=== PATIENT | female | born 1950 | race Two or more races ===

== ENCOUNTER 2023-04-26 14:35 | Inpatient (IN) | payer OTHER ==
[~2023-04-26] VITALS: Ht 154.9 cm; Wt 103.5 kg
[2023-04-26 15:39] LABS: Basophils # (auto) 0 10 ^3/uL (0-0.2); Basophils % (auto) 0.6 % (0.0-2.0); Eosinophils # (auto) 0.3 10 ^3/uL (0-0.8); Eosinophils % (auto) 3.6 % (0.0-7.0); Hematocrit 40.7 % (36.0-46.0); Hemoglobin 13.7 g/dL (12.2-16.2); Lymphocytes # (auto) 2.1 10 ^3/uL (0.4-5.4); Lymphocytes % (auto) 25.8 % (10.0-50.0); Mean Corpuscular Hemoglobin 30.4 pg (28.0-32.0); Mean Corpuscular Hgb Conc. 33.7 g/dL (32.0-36.0); Monocytes # (auto) 0.4 10 ^3/uL (0-1.3); Monocytes % (auto) 5.4 % (0.0-12.0); Neutrophils # (auto) 5.3 10 ^3/uL (1.6-8.6); Neutrophils % (auto) 64.6 % (37.0-80.0); Nucleated Red Blood Cells % 0.2 %; Red Blood Cells 4.52 10^6/uL (4.0-5.20); Red Cell Distribution Width 14.7 % (11.8-14.3); White Blood Cell 8.2 10^3/uL (4.4-10.8)
[2023-04-26 16:02] LABS: Albumin 3.5 g/dL (3.4-5.0); BUN/Creatinine Ratio 24.6 (10.0-20.0); Bilirubin, Total 0.6 mg/dL (0.2-1.0); Calcium 8.7 mg/dL (8.5-10.1); Total Protein 7.2 g/dL (6.4-8.2)
[2023-04-26 16:37] VITALS: PULSE 65; RESP 20; O2SAT 99
[2023-04-26] MEDS ORDERED: ASPirin 325 MG TAB PO ONE (16:45)
[2023-04-26 16:56] LABS: INR 1.04 (0.9-1.15); Partial Thromboplastin Time 26.7 SEC (24.5-34.5)
[2023-04-26 17:02] LABS: Urine Bacteria FEW /hpf (None Seen); Urine Blood Negative /uL (Negative); Urine Specific Gravity 1.019 (1.001-1.035); Urine WBC 1 /hpf (0 - 5)
[2023-04-26] MEDS ORDERED: HEPARIN SODIUM (PORCINE) 5000 UNITS/ML 1ML VIAL IV ONE (17:45)
[2023-04-26] MEDS ORDERED: AMLO1TAB21 PO (18:45)
[2023-04-26] MEDS ORDERED: NITROGLYCERIN 0.4 MG SL TAB SL PRN (18:45)
[2023-04-26] MEDS ORDERED: INSUINJ37 SC (18:45)
[2023-04-26] MEDS ORDERED: METH4PAK3 PO (18:45)
[2023-04-26] MEDS ORDERED: LIRA18IN2 SC (18:45)
[2023-04-26] MEDS ORDERED: EMPA1TAB3 PO (18:45)
[2023-04-26] MEDS ORDERED: BACL10TA PO (18:45)
[2023-04-26] MEDS ORDERED: MORPHINE SULFATE INJ 2 MG/ml SYRG IV PRN (18:45)
[2023-04-26] MEDS ORDERED: GLUC1TES36 (18:45)
[2023-04-26] MEDS ORDERED: ALBUTEROL SULF 2.5 MG/0.5ML(0.5%) NEB SOLN NEB PRN (18:45)
[2023-04-26] MEDS: HEPARIN DRIP/D5W 100UNITS/ML 250 ML IV SCH (18:47)
[2023-04-26] MEDS: SODIUM CHLORIDE 0.9% 1,000 ML IV SCH (18:53)
[2023-04-26] MEDS ORDERED: DEXTROSE (50%) 50ML SYRG IV PRN (19:00)
[2023-04-26 19:18] LABS: Cholesterol 158 mg/dL (< 200)
[2023-04-26 19:20] LABS: HDL Cholesterol 65 mg/dL (40-59); LDL Cholesterol 71 mg/dL (< 100); Triglycerides 316 mg/dL (< 150)
[2023-04-26 19:30] VITALS: PULSE 18; RESP 20; O2SAT 96
[2023-04-26 20:15] VITALS: BP 132/80; PULSE 65; RESP 16; TEMP 98.3; O2SAT 98
[2023-04-26] MEDS: ACCU-CHEK COMFORT CURVE STRIP VI SCH (21:55)
[2023-04-26] MEDS: InsuLIN REG 1unit/0.01ml Soln (100units/ml) SC SCH (21:56)
[2023-04-27] VITALS (7 sets, daily range): BP systolic 126–149; BP diastolic 61–81; PULSE 52–81; RESP 16–21; TEMP 97.6–98.1; O2SAT 95–99
[2023-04-27 01:44] LABS: Partial Thromboplastin Time > 139.0 SEC (24.5-34.5)
[2023-04-27 06:27] LABS: Basophils # (auto) 0 10 ^3/uL (0-0.2); Basophils % (auto) 0.5 % (0.0-2.0); Eosinophils # (auto) 0.4 10 ^3/uL (0-0.8); Eosinophils % (auto) 4.9 % (0.0-7.0); Hematocrit 38.1 % (36.0-46.0); Hemoglobin 12.5 g/dL (12.2-16.2); Lymphocytes # (auto) 2.1 10 ^3/uL (0.4-5.4); Lymphocytes % (auto) 28.3 % (10.0-50.0); Mean Corpuscular Hemoglobin 30.2 pg (28.0-32.0); Mean Corpuscular Hgb Conc. 32.9 g/dL (32.0-36.0); Mean Corpuscular Volume 91.8 fL (80.0-100.0); Monocytes # (auto) 0.5 10 ^3/uL (0-1.3); Neutrophils # (auto) 4.3 10 ^3/uL (1.6-8.6); Neutrophils % (auto) 59.3 % (37.0-80.0); Nucleated Red Blood Cells % 0.2 %; Red Blood Cells 4.15 10^6/uL (4.0-5.20); Red Cell Distribution Width 14.4 % (11.8-14.3); White Blood Cell 7.3 10^3/uL (4.4-10.8)
[2023-04-27] MEDS: InsuLIN REG 1unit/0.01ml Soln (100units/ml) SC SCH ×4 (06:29→21:27)
[2023-04-27] MEDS: ACCU-CHEK COMFORT CURVE STRIP VI SCH ×4 (06:29→21:27)
[2023-04-27 06:46] LABS: Albumin 2.9 g/dL (3.4-5.0); Calcium 8.3 mg/dL (8.5-10.1); Potassium 4.1 mmol/L (3.5-5.1)
[2023-04-27 06:51] LABS: BUN/Creatinine Ratio 24.8 (10.0-20.0); Bilirubin, Total 0.5 mg/dL (0.2-1.0); Total Protein 6.7 g/dL (6.4-8.2)
[2023-04-27 09:51] LABS: INR 1.08 (0.9-1.15); Partial Thromboplastin Time 53.2 SEC (24.5-34.5)
[2023-04-27] MEDS: amLODIPine BESYLATE 5 MG TAB PO SCH (11:22)
[2023-04-27] MEDS: HEPARIN DRIP/D5W 100UNITS/ML 250 ML IV SCH ×3 (11:27→23:19)
[2023-04-27] MEDS: SODIUM CHLORIDE 0.9% 1,000 ML IV SCH ×2 (11:28→21:28)
[2023-04-27 15:48] LABS: INR 1.07 (0.9-1.15)
[2023-04-27] MEDS: ATORVASTATIN 20 MG TAB PO SCH (21:27)
[2023-04-27] MEDS: PANTOPRAZOLE 40 MG/10 ML VIAL INJ IV SCH (21:28)
[2023-04-27 23:07] LABS: INR 1.08 (0.9-1.15)
[2023-04-27 23:11] LABS: Partial Thromboplastin Time 79.1 SEC (24.5-34.5)
[2023-04-28] VITALS (8 sets, daily range): BP systolic 115–150; BP diastolic 47–85; PULSE 55–74; RESP 16–20; TEMP 97.3–98.1; O2SAT 97–100
[2023-04-28] MEDS: ACETAMINOPHEN 325 MG TAB PO PRN ×2 (06:24→23:44)
[2023-04-28] MEDS: InsuLIN REG 1unit/0.01ml Soln (100units/ml) SC SCH ×4 (06:24→21:36)
[2023-04-28] MEDS: ACCU-CHEK COMFORT CURVE STRIP VI SCH ×4 (06:24→21:32)
[2023-04-28 06:46] LABS: INR 1.08 (0.9-1.15); Partial Thromboplastin Time 65.2 SEC (24.5-34.5)
[2023-04-28] MEDS: HEPARIN DRIP/D5W 100UNITS/ML 250 ML IV SCH ×2 (06:59→19:56)
[2023-04-28] MEDS: PANTOPRAZOLE 40 MG/10 ML VIAL INJ IV SCH ×2 (11:13→21:32)
[2023-04-28] MEDS: amLODIPine BESYLATE 5 MG TAB PO SCH (11:16)
[2023-04-28 12:48] LABS: INR 1.09 (0.9-1.15); Partial Thromboplastin Time 61.6 SEC (24.5-34.5)
[2023-04-28 19:32] LABS: INR 1.06 (0.9-1.15)
[2023-04-28] MEDS: ATORVASTATIN 20 MG TAB PO SCH (21:31)
[2023-04-28] MEDS: HYDROcodone-ACET 5/325MG TAB PO PRN (21:31)
[2023-04-28] MEDS: SODIUM CHLORIDE 0.9% 1,000 ML IV SCH (21:32)
[2023-04-29] VITALS (12 sets, daily range): BP systolic 110–145; BP diastolic 54–80; PULSE 50–63; RESP 13–18; TEMP 97.5–98.7; O2SAT 94–100
[2023-04-29] MEDS: InsuLIN REG 1unit/0.01ml Soln (100units/ml) SC SCH ×4 (06:46→21:37)
[2023-04-29] MEDS: ACCU-CHEK COMFORT CURVE STRIP VI SCH ×4 (06:47→21:37)
[2023-04-29 07:18] LABS: INR 1.09 (0.9-1.15)
[2023-04-29 07:50] LABS: Partial Thromboplastin Time > 139.0 SEC (24.5-34.5)
[2023-04-29] MEDS ORDERED: HEPARIN DRIP/D5W 100UNITS/ML 250 ML IV SCH ×2 (09:00→17:55)
[2023-04-29] MEDS: PANTOPRAZOLE 40 MG/10 ML VIAL INJ IV SCH ×2 (09:08→21:27)
[2023-04-29] MEDS: amLODIPine BESYLATE 5 MG TAB PO SCH (09:09)
[2023-04-29] MEDS ORDERED: MIDAZOLAM HCL 2MG/2ML 2ml VIAL (1mg/ml) ONE (12:54)
[2023-04-29] MEDS ORDERED: fentaNYL CITRATE 100 MCG/2 ML VL ONE (12:54)
[2023-04-29] MEDS ORDERED: VERAPAMIL 2.5MG/ML INJ 2ML VIAL IV ONE (12:54)
[2023-04-29] MEDS ORDERED: ANGIOMAX 250 MG VIAL IV ONE (12:54)
[2023-04-29] MEDS ORDERED: LIDOCAINE 2%HCL (LOCAL ANESTH.) INJ 20ML MDV ONE (12:55)
[2023-04-29] MEDS ORDERED: SODIUM CHL 0.9% 0 ML ONE (12:55)
[2023-04-29] MEDS: SODIUM CHLORIDE 0.9% 1,000 ML IV SCH (13:25)
[2023-04-29] MEDS ORDERED: HEPARIN SODIUM (PORCINE) 5000 UNITS/ML 1ML VIAL ONE (13:48)
[2023-04-29 16:50] LABS: INR 1.07 (0.9-1.15)
[2023-04-29 16:54] LABS: Partial Thromboplastin Time 102.2 SEC (24.5-34.5)
[2023-04-29] MEDS: ATORVASTATIN 20 MG TAB PO SCH (21:27)
[2023-04-30] VITALS (9 sets, daily range): BP systolic 120–139; BP diastolic 62–98; PULSE 53–80; RESP 16–18; TEMP 97.4–98.9; O2SAT 95–98
[2023-04-30 01:40] LABS: INR 1.06 (0.9-1.15); Partial Thromboplastin Time 49.2 SEC (24.5-34.5)
[2023-04-30] MEDS: SODIUM CHLORIDE 0.9% 1,000 ML IV SCH ×2 (06:05→22:45)
[2023-04-30] MEDS: InsuLIN REG 1unit/0.01ml Soln (100units/ml) SC SCH ×4 (06:35→23:09)
[2023-04-30] MEDS: ACCU-CHEK COMFORT CURVE STRIP VI SCH ×4 (06:38→22:00)
[2023-04-30 07:17] LABS: INR 1.06 (0.9-1.15); Partial Thromboplastin Time 59.8 SEC (24.5-34.5)
[2023-04-30] MEDS ORDERED: HEPARIN DRIP/D5W 100UNITS/ML 250 ML IV SCH ×2 (08:30→14:45)
[2023-04-30] MEDS: PANTOPRAZOLE 40 MG/10 ML VIAL INJ IV SCH ×2 (09:42→21:23)
[2023-04-30] MEDS: amLODIPine BESYLATE 5 MG TAB PO SCH (09:43)
[2023-04-30 13:42] LABS: INR 1.08 (0.9-1.15); Partial Thromboplastin Time 36.1 SEC (24.5-34.5)
[2023-04-30] MEDS: HYDROcodone-ACET 5/325MG TAB PO PRN ×2 (17:50→23:10)
[2023-04-30] MEDS: ATORVASTATIN 20 MG TAB PO SCH (21:23)
[2023-04-30 21:28] LABS: INR 1.04 (0.9-1.15); Partial Thromboplastin Time 51.2 SEC (24.5-34.5)
[2023-05-01] VITALS (7 sets, daily range): BP systolic 107–137; BP diastolic 58–76; PULSE 53–87; RESP 15–20; TEMP 97.7–98.2; O2SAT 90–98
[2023-05-01 03:30] LABS: INR 1.04 (0.9-1.15)
[2023-05-01 03:32] LABS: Partial Thromboplastin Time 82.6 SEC (24.5-34.5)
[2023-05-01] MEDS: InsuLIN REG 1unit/0.01ml Soln (100units/ml) SC SCH ×4 (05:53→21:32)
[2023-05-01] MEDS: ACCU-CHEK COMFORT CURVE STRIP VI SCH ×4 (05:54→22:28)
[2023-05-01] MEDS: PANTOPRAZOLE 40 MG/10 ML VIAL INJ IV SCH ×2 (09:23→21:30)
[2023-05-01] MEDS: amLODIPine BESYLATE 5 MG TAB PO SCH (09:26)
[2023-05-01] MEDS: HYDROcodone-ACET 5/325MG TAB PO PRN ×2 (09:50→21:30)
[2023-05-01] MEDS: APIXABAN 5 MG TAB PO SCH ×2 (10:30→21:30)
[2023-05-01 11:07] LABS: INR 1.06 (0.9-1.15); Partial Thromboplastin Time 53.3 SEC (24.5-34.5)
[2023-05-01] MEDS: SODIUM CHLORIDE 0.9% 1,000 ML IV SCH (15:25)
[2023-05-01] MEDS: ATORVASTATIN 20 MG TAB PO SCH (21:30)
[2023-05-02 05:00] VITALS: BP 123/76; PULSE 66; RESP 18; TEMP 98; O2SAT 96
[2023-05-02] MEDS: SODIUM CHLORIDE 0.9% 1,000 ML IV SCH (05:53)
[2023-05-02] MEDS: InsuLIN REG 1unit/0.01ml Soln (100units/ml) SC SCH ×4 (06:04→21:16)
[2023-05-02] MEDS: ACCU-CHEK COMFORT CURVE STRIP VI SCH ×4 (07:01→21:21)
[2023-05-02 08:00] VITALS: PULSE 58
[2023-05-02 09:00] VITALS: BP 138/65; PULSE 71; RESP 16; TEMP 97.3; O2SAT 97
[2023-05-02] MEDS: PANTOPRAZOLE 40 MG/10 ML VIAL INJ IV SCH ×2 (09:36→21:17)
[2023-05-02] MEDS: APIXABAN 5 MG TAB PO SCH ×2 (09:37→21:17)
[2023-05-02] MEDS: amLODIPine BESYLATE 5 MG TAB PO SCH (09:37)
[2023-05-02] MEDS: HYDROcodone-ACET 5/325MG TAB PO PRN ×2 (11:31→19:38)
[2023-05-02 12:53] VITALS: BP 131/57; PULSE 70; RESP 16; TEMP 96.9; O2SAT 98
[2023-05-02 17:00] VITALS: BP 122/57; PULSE 65; RESP 16; TEMP 97.7; O2SAT 97
[2023-05-02 20:00] VITALS: PULSE 69
[2023-05-02] MEDS: ATORVASTATIN 20 MG TAB PO SCH (21:17)
[2023-05-03] MEDS: SODIUM CHLORIDE 0.9% 1,000 ML IV SCH (01:04)
[2023-05-03 05:16] VITALS: BP 139/66; PULSE 65; RESP 20; TEMP 98.5; O2SAT 97
[2023-05-03] MEDS: InsuLIN REG 1unit/0.01ml Soln (100units/ml) SC SCH ×2 (06:28→11:30)
[2023-05-03] MEDS: ACCU-CHEK COMFORT CURVE STRIP VI SCH ×2 (06:29→11:30)
[2023-05-03 08:00] VITALS: PULSE 55
[2023-05-03 09:00] VITALS: BP 124/57; PULSE 68; RESP 15; TEMP 98.5; O2SAT 97
[2023-05-03] MEDS: PANTOPRAZOLE 40 MG/10 ML VIAL INJ IV SCH (09:24)
[2023-05-03] MEDS: APIXABAN 5 MG TAB PO SCH (09:24)
[2023-05-03] MEDS: amLODIPine BESYLATE 5 MG TAB PO SCH (09:29)
[2023-05-03] MEDS ORDERED: APIX5TAB PO (09:57)
[2023-05-03] MEDS ORDERED: PANT40T PO (09:57)
[2023-05-03 10:25] VITALS: BP 124/57
== END 2023-05-03 12:47 | disposition home or self-care (01) | DRG 280 ==
LOC: ER 14:35 → TELE 18:43 → TELE-CENTR 04-27 08:17
PROVIDERS: ADMIT Family Medicine; ATTEND Family Medicine
PROC: 4A023N7 Measurement of Cardiac Sampling and Pressure, Left Heart, Percutaneous Approach (ICD-10-PCS; principal; 2023-04-29)
PROC: B211YZZ Fluoroscopy of Multiple Coronary Arteries using Other Contrast (ICD-10-PCS; 2023-04-29)
DX: I21.4 Non-ST elevation (NSTEMI) myocardial infarction (principal); J96.01 Acute respiratory failure with hypoxia; I82.4Z2 Acute embolism and thrombosis of unspecified deep veins of left distal lower extremity; Z68.41 Body mass index [BMI] 40.0-44.9, adult; Z20.822 Contact with and (suspected) exposure to COVID-19; E66.9 Obesity, unspecified; I10 Essential (primary) hypertension; E11.9 Type 2 diabetes mellitus without complications; J45.909 Unspecified asthma, uncomplicated; E78.5 Hyperlipidemia, unspecified; E78.00 Pure hypercholesterolemia, unspecified; I25.10 Atherosclerotic heart disease of native coronary artery without angina pectoris; S70.12XA Contusion of left thigh, initial encounter; K29.70 Gastritis, unspecified, without bleeding; Z93.3 Colostomy status; Z79.01 Long term (current) use of anticoagulants; Z82.0 Family history of epilepsy and other diseases of the nervous system; X58.XXXA Exposure to other specified factors, initial encounter; Y93.89 Activity, other specified; Y92.238 Other place in hospital as the place of occurrence of the external cause; Y99.8 Other external cause status
CPT/HCPCS: 36415; 71045; 78582; 80053; 80061; 81001; 82270; 82962; 83036; 83735; 83880; 84443; 84484; 85025; 85379; 85610; 85730; 86850; 86900; 86901; 87426; 87804; 93005; 93306; 93458; 93926; 93970; 96374; 96375; 99152; C9113; G0378; J1815; J2250

== ENCOUNTER → 2023-09-14 | Outpatient (CLI) | payer OTHER ==
[~2023-09-14] MED LIST: AMLO1TAB21 PO; APIX5TAB PO; BACL10TA PO; EMPA1TAB3 PO; GLUC1TES36; INSUINJ37 SC; LIRA18IN2 SC; METH4PAK3 PO; PANT40T PO
[2023-09-14 13:57] LABS: Basophils # (auto) 0 10 ^3/uL (0-0.2); Basophils % (auto) 0.4 % (0.0-2.0); Eosinophils # (auto) 0.2 10 ^3/uL (0-0.8); Eosinophils % (auto) 2.1 % (0.0-7.0); Hematocrit 42.8 % (36.0-46.0); Hemoglobin 14.2 g/dL (12.2-16.2); Lymphocytes # (auto) 2.3 10 ^3/uL (0.4-5.4); Lymphocytes % (auto) 26.7 % (10.0-50.0); Mean Corpuscular Hemoglobin 30.1 pg (28.0-32.0); Mean Corpuscular Hgb Conc. 33.1 g/dL (32.0-36.0); Mean Corpuscular Volume 90.9 fL (80.0-100.0); Monocytes # (auto) 0.5 10 ^3/uL (0-1.3); Monocytes % (auto) 5.5 % (0.0-12.0); Neutrophils # (auto) 5.7 10 ^3/uL (1.6-8.6); Neutrophils % (auto) 65.3 % (37.0-80.0); Nucleated Red Blood Cells % 0.1 %; Red Blood Cells 4.71 10^6/uL (4.0-5.20); White Blood Cell 8.7 10^3/uL (4.4-10.8)
[2023-09-14 14:12] LABS: Urine Bacteria FEW /hpf (None Seen); Urine WBC 4 /hpf (0 - 5)
[2023-09-14 14:37] LABS: Alanine Aminotransferase 27 U/L (7-40); Albumin 4.5 g/dL (3.2-4.8); Alkaline Phosphatase 83 U/L (46-116); Anion Gap 7 (5-15); Aspartate Aminotransferase 29 U/L (13-40); BUN/Creatinine Ratio 22.8 (10.0-20.0); Bilirubin, Total 0.4 mg/dL (0.2-1.0); Blood Urea Nitrogen 34 mg/dL (9-23); Calcium 10.1 mg/dL (8.5-10.1); Carbon Dioxide 25 mmol/L (20-30); Chloride 108 mmol/L (98-107); Cholesterol 166 mg/dL (< 200); Glucose 246 mg/dL (74-106); HDL Cholesterol 60 mg/dL (40-59); LDL Cholesterol 85 mg/dL (< 100); Potassium 4.2 mmol/L (3.5-5.1); Sodium 140 mmol/L (136-145); Total Protein 7.5 g/dL (5.7-8.2); Triglycerides 268 mg/dL (< 150)
[2023-09-14 16:07] LABS: Urine Blood Negative /uL (Negative); Urine Clarity CLEAR (Clear); Urine Color Colorless (Yellow); Urine Protein, UAD TRACE (Negative); Urine Specific Gravity 1.016 (1.001-1.035); Urine Urobilinogen Normal (Negative); Urine pH 5.5 (5.0-8.0)
== END | disposition home or self-care (01) ==
LOC: LAB 13:33
PROVIDERS: ATTEND Internal Medicine
DX: Z13.820 Encounter for screening for osteoporosis (principal); Z00.01 Encounter for general adult medical examination with abnormal findings; I13.0 Hypertensive heart and chronic kidney disease with heart failure and stage 1 through stage 4 chronic kidney disease, or unspecified chronic kidney disease; E11.22 Type 2 diabetes mellitus with diabetic chronic kidney disease; I50.42 Chronic combined systolic (congestive) and diastolic (congestive) heart failure; N18.31 Chronic kidney disease, stage 3a; E11.69 Type 2 diabetes mellitus with other specified complication; E78.2 Mixed hyperlipidemia
CPT/HCPCS: 36415; 80053; 80061; 81001; 82306; 83036; 84439; 84443; 85025

== ENCOUNTER → 2023-11-09 | Outpatient (CLI) | payer MEDICAID ==
[2023-11-09 12:44] LABS: Basophils # (auto) 0 10 ^3/uL (0-0.2); Basophils % (auto) 0.4 % (0.0-2.0); Eosinophils # (auto) 0.2 10 ^3/uL (0-0.8); Hematocrit 41.3 % (36.0-46.0); Hemoglobin 13.4 g/dL (12.2-16.2); Lymphocytes # (auto) 2.2 10 ^3/uL (0.4-5.4); Lymphocytes % (auto) 27.8 % (10.0-50.0); Mean Corpuscular Hemoglobin 29.4 pg (28.0-32.0); Mean Corpuscular Hgb Conc. 32.5 g/dL (32.0-36.0); Mean Corpuscular Volume 90.4 fL (80.0-100.0); Monocytes # (auto) 0.4 10 ^3/uL (0-1.3); Monocytes % (auto) 5.6 % (0.0-12.0); Neutrophils # (auto) 4.9 10 ^3/uL (1.6-8.6); Neutrophils % (auto) 63.2 % (37.0-80.0); Nucleated Red Blood Cells % 0.1 %; Red Blood Cells 4.57 10^6/uL (4.0-5.20); White Blood Cell 7.8 10^3/uL (4.4-10.8)
[2023-11-09 13:04] LABS: Urine Bacteria NONE SEEN /hpf (None Seen); Urine Blood TRACE /uL (Negative); Urine Clarity HAZY (Clear); Urine Color Yellow (Yellow); Urine Protein, UAD 2+ (Negative); Urine Specific Gravity 1.016 (1.001-1.035); Urine Urobilinogen Normal (Negative); Urine WBC 51 /hpf (0 - 5)
[2023-11-09 13:15] LABS: Potassium 4.1 mmol/L (3.5-5.1)
[2023-11-09 13:16] LABS: Calcium 9.4 mg/dL (8.5-10.1)
[2023-11-09 13:19] LABS: Creatinine, Urine 121.88 mg/dL (30.0-125.0); Urine Protein/Creatinine Ratio 1.05
[2023-11-09 13:23] LABS: Albumin 4.2 g/dL (3.2-4.8)
[2023-11-09 13:48] LABS: Uric Acid 7.3 mg/dL (3.1-7.8)
[2023-11-09 13:55] LABS: BUN/Creatinine Ratio 11.5 (10.0-20.0)
== END | disposition home or self-care (01) ==
LOC: LAB 12:33
PROVIDERS: ATTEND Internal Medicine
DX: E11.22 Type 2 diabetes mellitus with diabetic chronic kidney disease (principal); N18.30 Chronic kidney disease, stage 3 unspecified; R80.9 Proteinuria, unspecified; E21.3 Hyperparathyroidism, unspecified; M10.9 Gout, unspecified; D63.1 Anemia in chronic kidney disease; N39.0 Urinary tract infection, site not specified; E55.9 Vitamin D deficiency, unspecified; E11.21 Type 2 diabetes mellitus with diabetic nephropathy
CPT/HCPCS: 36415; 80069; 81001; 82306; 82570; 83970; 84156; 84550; 85025

== ENCOUNTER → 2024-03-12 | Outpatient (CLI) | payer MEDICAID | END | disposition home or self-care (01) | LOC: LAB 06:22 | PROVIDERS: ATTEND Urology | DX: N39.0 Urinary tract infection, site not specified (principal) | CPT/HCPCS: 87086 ==

== ENCOUNTER → 2024-07-24 | Outpatient (CLI) | payer MEDICAID ==
[2024-07-24 11:47] LABS: Urine Bacteria None Seen /hpf (None Seen)
[2024-07-24 12:08] LABS: Alanine Aminotransferase 39 U/L (7-40); Albumin 4.3 g/dL (3.2-4.8); Alkaline Phosphatase 74 U/L (46-116); Anion Gap 7 (5-15); Aspartate Aminotransferase 30 U/L (13-40); BUN/Creatinine Ratio 14.7 (10.0-20.0); Blood Urea Nitrogen 19 mg/dL (9-23); Calcium 9.9 mg/dL (8.7-10.4); Carbon Dioxide 24 mmol/L (20-31); Chloride 109 mmol/L (98-107); Cholesterol 154 mg/dL (< 200); GFR African American 52 mL/min; GFR Non-African American 43 mL/min; Glucose 159 mg/dL (74-106); HDL Cholesterol 61 mg/dL (40-59); LDL Cholesterol 75 mg/dL (< 100); Potassium 3.9 mmol/L (3.5-5.1); Sodium 140 mmol/L (136-145); Triglycerides 163 mg/dL (< 150)
[2024-07-24 12:09] LABS: Bilirubin, Total 0.5 mg/dL (0.2-1.0); Phosphorus 2.4 mg/dL (2.4-5.1); Total Protein 7.3 g/dL (5.7-8.2)
[2024-07-24 12:17] LABS: Urine Blood Negative /uL (Negative); Urine Clarity Clear (Clear); Urine Color Light-Yellow (Yellow); Urine Protein, UAD TRACE (Negative); Urine Specific Gravity 1.013 (1.001-1.035); Urine Urobilinogen Normal (Negative); Urine WBC 3 /hpf (0 - 5)
[2024-07-24 12:40] LABS: Basophils # (auto) 0 10 ^3/uL (0-0.2); Basophils % (auto) 0.5 % (0.0-2.0); Eosinophils # (auto) 0.2 10 ^3/uL (0-0.8); Eosinophils % (auto) 2.5 % (0.0-7.0); Hematocrit 41.2 % (36.0-46.0); Lymphocytes # (auto) 2.5 10 ^3/uL (0.4-5.4); Lymphocytes % (auto) 31.3 % (10.0-50.0); Mean Corpuscular Hemoglobin 31.5 pg (28.0-32.0); Mean Corpuscular Hgb Conc. 33.9 g/dL (32.0-36.0); Mean Corpuscular Volume 92.8 fL (80.0-100.0); Monocytes # (auto) 0.5 10 ^3/uL (0-1.3); Monocytes % (auto) 6.4 % (0.0-12.0); Neutrophils # (auto) 4.7 10 ^3/uL (1.6-8.6); Neutrophils % (auto) 59.3 % (37.0-80.0); Nucleated Red Blood Cells % 0.2 %; Platelet Count (auto) 197 10^3/uL (140-450); Red Blood Cells 4.43 10^6/uL (4.0-5.20); Red Cell Distribution Width 14.8 % (11.8-14.3)
[2024-07-24 12:44] LABS: Uric Acid 8.2 mg/dL (3.1-7.8)
[2024-07-24 14:27] LABS: Creatinine, Urine 87.6 mg/dL (30.0-125.0)
== END | disposition home or self-care (01) ==
LOC: LAB 11:40
PROVIDERS: ATTEND Internal Medicine
DX: I13.0 Hypertensive heart and chronic kidney disease with heart failure and stage 1 through stage 4 chronic kidney disease, or unspecified chronic kidney disease (principal); I50.42 Chronic combined systolic (congestive) and diastolic (congestive) heart failure; E11.22 Type 2 diabetes mellitus with diabetic chronic kidney disease; N18.30 Chronic kidney disease, stage 3 unspecified; D63.1 Anemia in chronic kidney disease; N39.0 Urinary tract infection, site not specified; R80.9 Proteinuria, unspecified; I72.9 Aneurysm of unspecified site; E66.01 Morbid (severe) obesity due to excess calories
CPT/HCPCS: 36415; 80053; 80061; 80069; 81001; 82043; 82306; 82570; 83036; 83970; 84550; 85025

== ENCOUNTER → 2025-01-16 | Outpatient (CLI) | payer MEDICAID ==
[2025-01-16 10:25] LABS: Alanine Aminotransferase 24 U/L (7-40); Albumin 4.3 g/dL (3.2-4.8); Alkaline Phosphatase 83 U/L (46-116); Anion Gap 8 (5-15); Aspartate Aminotransferase 21 U/L (13-40); BUN/Creatinine Ratio 21.5 (10.0-20.0); Calcium 10.1 mg/dL (8.7-10.4); Carbon Dioxide 24 mmol/L (20-31); Creatine Kinase IFCC 49 U/L (34-145); Potassium 4.1 mmol/L (3.5-5.1); Sodium 142 mmol/L (136-145); Total Protein 7.3 g/dL (5.7-8.2)
[2025-01-16 10:26] LABS: Bilirubin, Total 0.4 mg/dL (0.2-1.0)
[2025-01-16 10:43] LABS: Blood Urea Nitrogen 28 mg/dL (9-23); Chloride 110 mmol/L (98-107); Glucose 154 mg/dL (74-106)
== END | disposition home or self-care (01) ==
LOC: LAB 09:52
PROVIDERS: ATTEND Internal Medicine
DX: E11.69 Type 2 diabetes mellitus with other specified complication (principal); E78.5 Hyperlipidemia, unspecified
CPT/HCPCS: 36415; 80053; 82550

== ENCOUNTER → 2025-07-23 | Outpatient (CLI) | payer MEDICAID | END | disposition home or self-care (01) | LOC: LAB 16:32 | PROVIDERS: ATTEND Internal Medicine | DX: N39.0 Urinary tract infection, site not specified | CPT/HCPCS: 87086 ==